=== PATIENT | male | born 1945 | race Caucasian/White ===

== ENCOUNTER → 2020-07-15 | Outpatient (CLI) | payer MEDICARE, OTHER ==
--- NOTE | 2020-07-15 17:28 | RAD ---
EXAM: NM PET/CT whole body EXAM DATE: 07/15/2020 INDICATION: Reason: MALIG NEOPLASM CONNECTIVE AND SOFT TISSUE. Patient also has a history of thyroid and prostate cancer. By report, patient has undergone parathyroidectomy also. RADIOPHARMACEUTICAL: 13.96 mCi of F-18 Fluorodeoxyglucose (FDG) I.V. via the right antecubital fossa. TECHNIQUE: Patient weight: 190 pounds. Following at least four-hour fasting, the patient's blood gluc ose was 107 mg/dl. Approximately 110 minutes after administration of FDG, overlapping emission scann ing was performed from the top of the head through the feet. A low-dose CT was performed for attenua tion correction purposes and anatomic localization. Fused images of PET and CT were reviewed. Any st andardized uptake values (SUV) reported are maximum values within a volume region of interest, expres sed in gm/ml. COMPARISON: No relevant comparisons currently available. FINDINGS: PET: No abnormal FDG uptake in the included field of view is clearly demonstrated from the top of the head through the feet although asymmetric activity in the intrinsic extensor muscles of the left foot are seen, likely related to physical activity. CT: The attenuation correction CT images show surgical changes from previous prostatectomy and bilateral pelvic hector dissection with multiple surgical clips present. No mass, adenopathy, fluid collection or aggressive osseous lesions are seen. In the chest, no pleura l effusion or suspicious lung nodule. In the abdomen and pelvis, no visceral masses, ascites or free air. Scattered colonic diverticuli without findings of bowel obstruction, acute inflammation or perforatio n. No aggressive appearing bony lesions. IMPRESSION: No evidence of FDG avid malignancy in the included field of view, from head to toe. Electronically signed by: Jus Islas MD (07/15/2020 5:26 PM) [id number]
== END ==
LOC: PETSC 08:41
PROVIDERS: ATTEND Family Medicine
DX: C49.21 Malignant neoplasm of connective and soft tissue of right lower limb, including hip (principal); Z85.46 Personal history of malignant neoplasm of prostate; Z85.850 Personal history of malignant neoplasm of thyroid
CPT/HCPCS: 78816; A9552